=== PATIENT | female | born 1980 | race Two or more races ===

== ENCOUNTER → 2019-09-13 | Outpatient (CLI) | payer OTHER | END | disposition home or self-care (01) | LOC: PRENATAL 09:00 | DX: O99.89 Other specified diseases and conditions complicating pregnancy, childbirth and the puerperium (principal); O99.212 Obesity complicating pregnancy, second trimester; O10.012 Pre-existing essential hypertension complicating pregnancy, second trimester; O34.211 Maternal care for low transverse scar from previous cesarean delivery; O35.3XX1 Maternal care for (suspected) damage to fetus from viral disease in mother, fetus 1; O09.522 Supervision of elderly multigravida, second trimester; O34.212 Maternal care for vertical scar from previous cesarean delivery; O99.282 Endocrine, nutritional and metabolic diseases complicating pregnancy, second trimester; E03.8 Other specified hypothyroidism ==

== ENCOUNTER → 2019-11-30 | Outpatient (CLI) | payer OTHER | END | disposition home or self-care (01) | LOC: PRENATAL 09:00 | DX: O26.843 Uterine size-date discrepancy, third trimester (principal); O99.213 Obesity complicating pregnancy, third trimester; O09.523 Supervision of elderly multigravida, third trimester; O13.3 Gestational [pregnancy-induced] hypertension without significant proteinuria, third trimester; O34.219 Maternal care for unspecified type scar from previous cesarean delivery; O99.89 Other specified diseases and conditions complicating pregnancy, childbirth and the puerperium ==

== ENCOUNTER → 2020-01-16 | Outpatient (CLI) | payer OTHER | END | disposition home or self-care (01) | LOC: PRENATAL 11:00 | DX: O26.843 Uterine size-date discrepancy, third trimester (principal); O99.213 Obesity complicating pregnancy, third trimester; O09.523 Supervision of elderly multigravida, third trimester; O13.3 Gestational [pregnancy-induced] hypertension without significant proteinuria, third trimester; O34.211 Maternal care for low transverse scar from previous cesarean delivery; O99.89 Other specified diseases and conditions complicating pregnancy, childbirth and the puerperium; O36.82 Fetal anemia and thrombocytopenia ==

== ENCOUNTER 2020-02-01 09:15 | Inpatient (IN) | payer OTHER ==
[~2020-02-01] VITALS: Ht 152.4 cm; Wt 87.5 kg
[2020-02-04] MEDS ORDERED: SYNTHROID100 MCG PO (13:05)
[2020-02-05] MEDS ORDERED: OBSTETRIX DHA1 EACH (15:42)
== END 2020-02-07 13:27 | disposition home or self-care (01) | DRG 785 ==
LOC: ADM 09:15 → EDSTATUS 09:15 → OB/GYN 02-04 08:57 → O/R 02-04 08:57 → OB/GYN 02-04 09:15
PROVIDERS: ADMIT Obstetrics & Gynecology
PROC: 0UL70ZZ Occlusion of Bilateral Fallopian Tubes, Open Approach (ICD-10-PCS; 2020-02-04)
PROC: 4A1HXCZ Monitoring of Products of Conception, Cardiac Rate, External Approach (ICD-10-PCS; 2020-02-04)
PROC: 10D00Z1 Extraction of Products of Conception, Low, Open Approach (ICD-10-PCS; principal; 2020-02-04 12:45)
DX: O13.4 Gestational [pregnancy-induced] hypertension without significant proteinuria, complicating childbirth (principal); O99.02 Anemia complicating childbirth; D64.89 Other specified anemias; Z3A.39 39 weeks gestation of pregnancy; Z37.0 Single live birth; Z30.2 Encounter for sterilization

== ENCOUNTER 2021-10-14 13:04 | Outpatient (CLI) | payer OTHER ==
[~2021-10-14 13:04] MED LIST changes: -AMLODIPINE-OLM1 EAC2 PO; -VASOTEC10 MG PO
[2021-10-14] MEDS ORDERED: VASOTEC10 MG PO (14:49)
[2021-10-14] MEDS ORDERED: AMLODIPINE-OLM1 EAC2 PO (14:49)
== END 2021-10-14 13:16 | disposition home or self-care (01) ==
LOC: RAD 13:04
DX: M79.675 Pain in left toe(s) (principal)

== ENCOUNTER → 2021-10-14 | Emergency (ER) | payer OTHER ==
[~2021-10-14] VITALS: Ht 152.4 cm; Wt 88.9 kg
[~2021-10-14] MED LIST: AMLODIPINE-OLM1 EAC2 PO; OBSTETRIX DHA1 EACH; SYNTHROID100 MCG PO; VASOTEC10 MG PO
== END | disposition home or self-care (01) ==
LOC: ER 14:40
DX: S90.112A Contusion of left great toe without damage to nail, initial encounter (principal); W22.8XXA Striking against or struck by other objects, initial encounter; Y93.89 Activity, other specified; Y92.89 Other specified places as the place of occurrence of the external cause; Y99.8 Other external cause status

== ENCOUNTER 2025-06-01 18:38 | Emergency (ER) | payer OTHER ==
[~2025-06-01] VITALS: Ht 152.4 cm; Wt 92.5 kg
[~2025-06-01 18:38] MED LIST changes: +AMLODIPINE-OLM1 EAC2 PO; +VASOTEC10 MG PO
[2025-06-01] MEDS ORDERED: SYNTHROID137 MCG (18:56)
[2025-06-01] MEDS ORDERED: KETOROLAC TROMETHAMINE 30 MG VIAL IM STA (19:15)
[2025-06-01] MEDS ORDERED: KETOROLAC TROMETHAMINE 30 MG VIAL ONE (20:18)
== END 2025-06-01 20:32 | disposition home or self-care (01) ==
LOC: ER 18:38
DX: M25.531 Pain in right wrist (principal)